=== PATIENT | female | born 1970 | race Caucasian/White ===

== ENCOUNTER → 2024-09-26 15:31 | Outpatient (CLI) | payer OTHER, SELFPAY ==
--- NOTE | 2024-09-26 15:37 | DI.MG.S_ITS ---
MM screening mammo implant BI: 09/26/2024. BI-RADS: 2 CLINICAL: 54-year old female for bilateral screening mammogram. Tyrer-Cuzick lifetime risk of 9.3%. No personal or first-degree family history of breast cancer. The patient has bilateral implants. The patient had a prior left breast biopsy. PRIOR EXAMS: 09/07/2023, 08/18/2022, 07/09/2021, 06/01/2021. MAMMOGRAPHY TECHNIQUE: 2D and 3D (tomosynthesis) digital mammographic views obtained, with additional images as needed for full coverage. Current study was also evaluated with a Computer Aided Detection (CAD) system. DENSITY C. The breasts are heterogeneously dense, which may obscure small masses. IMPLANTS Breast implants present. MAMMOGRAPHY FINDINGS Bilateral: There are no suspicious masses, calcifications, or other findings in the breast. IMPRESSION: * No evidence of malignancy with benign findings. RECOMMENDATIONS Bilateral * Annual screening mammography. OVERALL ASSESSMENT CATEGORY BI-RADS-2: Benign. [employer] recommends annual screening mammography beginning at age 40 for women with average risk of breast cancer. ELECTRONICALLY SIGNED: Leeroy Ceja M.D. on 09/27/2024 at 08:50:57 AM PT Interpreting Station ID: [id number]
== END ==
PROVIDERS: PCP Family Medicine; Referring Provider Family Medicine; Visit Provider Family Medicine
DX: Z12.31 Encounter for screening mammogram for malignant neoplasm of breast (principal); R92.333 Mammographic heterogeneous density, bilateral breasts; Z98.82 Breast implant status
CPT/HCPCS: 77063; 77067